=== PATIENT | female | born 1960 | race Caucasian/White ===

== ENCOUNTER 2016-11-17 13:53 | Emergency (ER) | payer MEDICAID ==
[~2016-11-17] VITALS: Ht 152.4 cm; Wt 60.0 kg
[~2016-11-17 13:53] MED LIST: FOLI-43 PO; PROP10TA10 PO
[2016-11-17] MEDS ORDERED: FURO20TA4 PO (14:06)
[2016-11-17] MEDS ORDERED: ASCO500C6 PO (14:06)
[2016-11-17] MEDS ORDERED: FERR-63 PO (14:06)
[2016-11-17] MEDS ORDERED: MULT-1146 PO (14:06)
[2016-11-17] MEDS ORDERED: LACT10SO6 PO (14:06)
[2016-11-17] MEDS ORDERED: PHYTONADIONE (14:06)
[2016-11-17] MEDS ORDERED: ERGO500043 PO (14:06)
[2016-11-17] MEDS ORDERED: SPIR50TA26 PO (14:06)
[2016-11-17] MEDS ORDERED: OMEP20CA10 PO (14:06)
[2016-11-17 15:02] LABS: INR 1.4; PROTHROMBIN TIME 14.8 sec
[2016-11-17 15:05] LABS: ALBUMIN 2.4 g/dL (3.4-5.0); ANION GAP 11; CALCIUM 8.8 mg/dL (8.5-10.1); CARBON DIOXIDE 27 mEq/L (21-32); CHLORIDE 111 mEq/L (98-107); ETHANOL BLOOD 225 mg/dL; INDEX HEMOLYSI 1 (1-3); INDEX ICTERIC 3 (1-4); INDEX LIPEMIC 1 (1-3)
[2016-11-17 15:07] LABS: ALANINE AMINOTRANSFERASE 25 IU/L (13-61); UREA NITROGEN BLOOD 4 mg/dL (7-21); eGFR > 60 mL/min (>60)
[2016-11-17 15:19] LABS: HEMOGLOBIN. 8.3 g/dL (12.0-16.0); MEAN CORPUSCULAR HEMOGLOBIN 33.4 pg (28.0-32.0); MEAN CORPUSCULAR HGB CONC 35.9 g/dL (31.0-37.0); MEAN CORPUSCULAR VOLUME 92.9 fL (81.0-99.0); RED BLOOD CELL COUNT 2.48 mill/uL (4.2-5.4); RED CELL DISTRIBUTION WIDTH 18.9 % (11.6-14.6); WHITE BLOOD COUNT 2.3 x1000/uL (4.5-11.0)
[2016-11-17 15:21] LABS: DIFFERENTIAL COMMENT 1
[2016-11-17 15:37] LABS: CLARITY URINE CLEAR (CLEAR); COLOR URINE DARK YELLOW (YELLOW); GLUCOSE URINE NEGATIVE (NEGATIVE); KETONES URINE NEGATIVE (NEGATIVE); LEUKOCYTE ESTERASE URINE NEGATIVE (NEGATIVE); NITRITE URINE NEGATIVE (NEGATIVE); OCCULT BLOOD URINE NEGATIVE (NEGATIVE); PH URINE 6.5 (4.5-8.0); PROTEIN URINE NEGATIVE (NEGATIVE); SPECIFIC GRAVITY URINE 1.012 (1.005-1.030)
[2016-11-17 15:48] LABS: *AMPHETAMINES SCREEN URINE NEGATIVE (NEGATIVE); *BARBITURATES SCREEN URINE NEGATIVE (NEGATIVE); *BENZODIAZEPINES SCREEN URINE NEGATIVE (NEGATIVE); *COCAINE SCREEN URINE NEGATIVE (NEGATIVE); CANNABINOID URINE SCREEN NEGATIVE (NEGATIVE); ECSTASY MDMA SCREEN URINE NEGATIVE (NEGATIVE); METHADONE URINE SCREEN NEGATIVE (NEGATIVE); OPIATES URINE SCREEN NEGATIVE (NEGATIVE); PHENCYCLIDINE URINE SCREEN NEGATIVE (NEGATIVE)
[2016-11-18 07:11] VITALS: BP 140/73
== END 2016-11-18 08:09 | disposition home or self-care (01) ==
LOC: ER 14:40
DX: T51.91XA Toxic effect of unspecified alcohol, accidental (unintentional), initial encounter (principal); K74.60 Unspecified cirrhosis of liver; Z79.899 Other long term (current) drug therapy
CPT/HCPCS: 36415; 74176; 80053; 80305; 81003; 85025; 85610; 99285; G0482; Z7610

== ENCOUNTER 2017-03-08 17:32 | Emergency (ER) | payer MEDICAID ==
[~2017-03-08] VITALS: Ht 160 cm; Wt 55.0 kg
[~2017-03-08 17:32] MED LIST changes: +ACET-3161 PO; +ERGO500013 PO; +FERR-63 PO; +FURO20TA4 PO; +LACT10SO6 PO; +METO-293 PO; +MULT-1146 PO; +OMEP20CA10 PO; +ONDA4TAB21 PO; +PHYTONADIONE; +SPIR50TA26 PO
[2017-03-08 17:38] VITALS: BP 105/69
== END 2017-03-08 21:00 | disposition left against medical advice (07) ==
LOC: ER 17:32
DX: Z53.21 Procedure and treatment not carried out due to patient leaving prior to being seen by health care provider (principal); I10 Essential (primary) hypertension; F10.20 Alcohol dependence, uncomplicated